=== PATIENT | female | born 1980 | race Two or more races ===

== ENCOUNTER 2018-02-04 21:49 | Emergency (ER) | payer SELFPAY ==
[~2018-02-04] VITALS: Ht 167.6 cm; Wt 59.0 kg
[2018-02-04 22:00] VITALS: BP 127/84
[2018-02-04] MEDS ORDERED: Norco 5mg/325mg tab ORAL ONE (22:15)
[2018-02-04] MEDS ORDERED: HYDROCODON-ACE1 EA15 ORAL (22:45)
[2018-02-04] MEDS ORDERED: IBUPROFEN600 MG ORAL (22:45)
--- NOTE | 2018-02-04 22:46 | Emergency Room Report ---
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 She is right-hand dominant but also uses her left hand. She presents with left hand pain status post fall this morning. She was chasing her friend and fell. Hand is swollen and painful. Pain is 8 out of 10. Worse with movement. No other injury. Did not pass out. Allergies: Coded Allergies: NITROFURANTOIN (Verified Allergy, Unknown, 02/04/18) SULFA (SULFONAMIDE ANTIBIOTICS) (Verified Allergy, Unknown, 02/04/18) SULFAMETHOXAZOLE (Verified Allergy, Unknown, 02/04/18) TRIMETHOPRIM (Verified Allergy, Unknown, 02/04/18) Patient History Past Medical History: see triage record, old chart reviewed Past Surgical History: none Pertinent Family History: none Social History: Denies: smoking Now: No Immunizations: other Reviewed Nursing Documentation: PMH: Agreed; PSxH: Agreed Nursing Documentation-PMH Past Medical History: No Stated History Review of Systems Eye: Denies: eye pain, blurred vision ENT: Denies: ear pain, nose congestion, throat swelling Respiratory: Denies: cough, shortness of breath Cardiovascular: Denies: chest pain, palpitations Gastrointestinal: Denies: abdominal pain, diarrhea, nausea, vomiting Musculoskeletal: Reports: joint pain, muscle pain; Denies: back pain Skin: Denies: rash Neurological: Denies: headache, numbness Endocrine: Denies: increased thirst, increased urine Hematologic/Lymphatic: Denies: easy bruising All Other Systems: negative except mentioned in HPI Physical Exam Vital Signs Date Time Temp Pulse Resp B/P (MAP) Pulse Ox O2 Delivery O2 Flow Rate FiO2 02/04/18 21:55 98.0 88 17 127/84 98 Room Air 98.1 vitals normal Sp02 EP Interpretation: reviewed, normal General Appearance: well appearing, no apparent distress, alert Head: normocephalic, atraumatic Eyes: bilateral eye PERRL, bilateral eye EOMI ENT: hearing grossly normal, normal pharynx Neck: full range of motion, supple, no meningismus Respiratory: chest non-tender, lungs clear, normal breath sounds Cardiovascular #1: regular rate, rhythm, no murmur Gastrointestinal: normal bowel sounds, non tender, no mass, no organomegaly, no bruit, non-distended Musculoskeletal: back normal, gait/station normal, normal range of motion, other - Left hand: There is edema and ecchymosis to the palm of the hand. Wrist nontender. Fingers nontender. Pulses normal. Neurologic: alert, oriented x3 Psychiatric: mood/affect normal Skin: warm/dry Procedures Splinting Splinting : Consent: Verbal Location: left hand Splint: sugar-tong - reverse Pre-Proc Neuro Vasc Exam: normal Post-Proc Neuro Vasc Exam: normal Patient Tolerated: Well Complications: None Medical Decision Making Diagnostic Impression: Primary Impression: Fracture, metacarpal shaft Qualified Codes: S62.323A - Displaced fracture of shaft of third metacarpal bone, left hand, initial encounter for closed fracture Additional Impression: Fracture, metacarpal Qualified Codes: S62.325A - Displaced fracture of shaft of fourth metacarpal bone, left hand, initial encounter for closed fracture ER Course Patient with a fall and has a third and fourth metacarpal bone fracture. She will probably need surgery for this. We'll discharge home. Other X-Ray Diagnostic Results Other X-Ray Diagnostic Results : X-Ray ordered: x-ray left hand # of Views/Limited Vs Complete: 3 View Indication: Pain EP Interpretation: Yes Interpretation: no dislocation, no soft tissue swelling, other - third and fourth metacarpal bone frx Impression: Other - 3rd and 4th MC bones frx. Electronically Signed by: Irvin Gomez MD Last Vital Signs Date Time Temp Pulse Resp B/P (MAP) Pulse Ox O2 Delivery O2 Flow Rate FiO2 02/04/18 22:30 98.0 02/04/18 22:00 17 127/84 98 Room Air 02/04/18 21:55 88 Status: improved Disposition: HOME, SELF-CARE Condition: Stable Scripts Ibuprofen* (MOTRIN*) 600 Mg Tablet 600 MG ORAL THREE TIMES A DAY, #30 TAB 0 Refills Prov: IRVIN GOMEZ M.D. 02/04/18 Hydrocodone/Acetaminophen 5-325* (HYDROCODONE/ACETAMINOPHEN 5-325*) 1 Each Tablet 1 TAB ORAL Q6H PRN for For Pain, #30 TAB 0 Refills Prov: IRVIN GOMEZ M.D. 02/04/18 Additional Instructions: Follow-up with your for referral to see orthopedic doctor ANTOINE. Return if symptom worsen. IRVIN GOMEZ M.D. Feb 04, 2018 22:46
[2018-02-04 23:20] VITALS: BP 127/84
== END 2018-02-04 23:30 | disposition home or self-care (01) ==
LOC: EMR 22:30
DX: S62.303A Unspecified fracture of third metacarpal bone, left hand, initial encounter for closed fracture (principal); S62.305A Unspecified fracture of fourth metacarpal bone, left hand, initial encounter for closed fracture; W18.11XA Fall from or off toilet without subsequent striking against object, initial encounter; Y93.89 Activity, other specified; Y92.9 Unspecified place or not applicable
CPT/HCPCS: 29125; 99283